=== PATIENT | female | born 1975 | race Caucasian/White ===

== ENCOUNTER 2018-11-08 20:37 | Emergency (ER) | payer SELFPAY ==
[~2018-11-08] VITALS: Ht 151.1 cm; Wt 62.7 kg
[2018-11-08] MEDS ORDERED: LIDOCAINE 1% 10 ML VIAL INJ ONE (21:30)
[2018-11-08] MEDS ORDERED: SILVER NITRATE APPLICATOR 1 EA STICK TP ONE (22:15)
[2018-11-08] MEDS ORDERED: HYDROCODONE/ACETAMINOPHEN 5-325 MG TABLET PO ONE (23:00)
[2018-11-08] MEDS ORDERED: BACITRACIN 0.9 GM PACKET OINTMENT TP ONE (23:00)
[2018-11-08 23:24] VITALS: BP 127/73
== END 2018-11-08 23:37 | disposition home or self-care (01) ==
LOC: EMS 20:39
DX: S02.2XXA Fracture of nasal bones, initial encounter for closed fracture (principal); S01.21XA Laceration without foreign body of nose, initial encounter; W22.8XXA Striking against or struck by other objects, initial encounter; Y93.89 Activity, other specified; Y92.89 Other specified places as the place of occurrence of the external cause; Y99.8 Other external cause status
CPT/HCPCS: 12011; 70160; 96372; 99283; J0690; J3490